=== PATIENT | female | born 1990 | race Caucasian/White ===

== ENCOUNTER 2019-03-02 06:00 | Day surgery (SDC) | payer BC ==
[~2019-03-02] VITALS: Ht 175.3 cm; Wt 102.1 kg
[~2019-03-02 06:00] MED LIST: CEFAZOLIN 1 GM IVPB PREMIX 50 ML IV ONE
[2019-03-02] MEDS ORDERED: MIDAZOLAM HCL 5 MG/5 ML VIAL IVP ONE (06:50)
[2019-03-02] MEDS ORDERED: LR 1,000 ML IV.SOLN IV ONE (06:50)
[2019-03-02] MEDS ORDERED: NS IRRIG SOLN 1000 ML IR ONE (06:50)
[2019-03-02] MEDS ORDERED: CEFAZOLIN SOD 1 GM in D5W 50 ML IV ONE (07:15)
[2019-03-02] MEDS ORDERED: TERBUTALINE SULFATE 1 MG/ML VIAL SUBCUT ONE (07:45)
[2019-03-02] MEDS ORDERED: MORPHINE 4 MG/ML INJ. SYRINGE IVP ONE (07:45)
[2019-03-02 08:06] VITALS: BP_SYST 109
== END 2019-03-02 18:00 | disposition home or self-care (01) ==
LOC: SMU 06:00 → SDS 06:00 → SPU 09:04 → SDS 18:00
PROVIDERS: ATTEND Specialist
DX: O34.32 Maternal care for cervical incompetence, second trimester (principal); Z88.5 Allergy status to narcotic agent; Z3A.14 14 weeks gestation of pregnancy
CPT/HCPCS: 59320; 87070 ×2; J2250; J3105; J7120; J0690; J7060

== ENCOUNTER 2019-03-25 12:06 | Emergency (ER) | payer BC ==
[~2019-03-25] VITALS: Ht 175.3 cm; Wt 99.8 kg
[2019-03-25 12:06] VITALS: BP_SYST 121
[2019-03-25 13:53] LABS: BASOPHILS # (AUTO) 0.1 K/uL (0.0-0.2); BASOPHILS % (AUTO) 0.7 % (0.0-2.0); EOSINOPHILS # (AUTO) 0.1 K/uL (0.0-0.4); HEMATOCRIT 36.6 % (36-48); HEMOGLOBIN 12.4 g/dL (12.0-16.0); LYMPHOCYTES # (AUTO) 2.1 K/uL (1.0-5.5); MEAN CORPUSCULAR HEMOGLOBIN 30 pg (27-31); MEAN CORPUSCULAR HGB CONC 34 % (32-36); MEAN CORPUSCULAR VOLUME 89 fL (79.0-98.0); MONOCYTES # (AUTO) 0.5 K/uL (0.0-1.0); MONOCYTES % (AUTO) 5.1 % (1.7-9.3); NEUTROPHILS # (AUTO) 6.8 K/uL (1.8-7.7); NEUTROPHILS % (AUTO) 71.2 % (40.0-70.0); PLATELET COUNT (AUTO) 267 K/uL (130-430); RED BLOOD CELL COUNT(AUTO) 4.14 MIL/uL (4.2-6.2); RED CELL DISTRIBUTION WIDTH 13.7 % (9.0-15.0); WHITE BLOOD COUNT (AUTO) 9.6 K/uL (4.8-10.8)
[2019-03-25 14:02] LABS: BILIRUBIN,URINE NEGATIVE (NEGATIVE); BLOOD, URINE NEGATIVE (NEGATIVE); COLOR,URINE YELLOW (YELLOW); GLUCOSE,URINE NEGATIVE (NEGATIVE); KETONES,URINE TRACE (NEGATIVE); LEUKOCYTE ESTERASE ,URINE 1+ (NEGATIVE); NITRITE, URINE NEGATIVE (NEGATIVE); PROTEIN URINE NEGATIVE (NEGATIVE)
[2019-03-25 14:06] LABS: CALCIUM 8.6 mg/dL (8.4-11.0); CREATININE 0.66 mg/dL (0.55-1.30); POTASSIUM 3.6 mmol/L (3.5-5.1)
[2019-03-25 14:12] LABS: ALBUMIN 2.7 g/dL (3.4-4.8); TOTAL BILIRUBIN 0.2 mg/dL (0.0-1.0)
[2019-03-25 14:13] LABS: CLARITY/URINE HAZY (CLEAR)
[2019-03-25 14:14] LABS: RBC,URINE NONE SEEN /HPF (0-3)
[2019-03-25 14:15] LABS: BACTERIA,URINE MODERATE /HPF (None Seen); MUCUS,URINE None Seen /LPF (None Seen)
[2019-03-25 15:14] VITALS: BP_SYST 114
== END 2019-03-25 15:14 | disposition home or self-care (01) ==
LOC: SED 12:06
DX: O26.892 Other specified pregnancy related conditions, second trimester (principal); R06.00 Dyspnea, unspecified; Z3A.17 17 weeks gestation of pregnancy
CPT/HCPCS: 36415; 80053; 81000-TC; 85025; 87086; 99283

== ENCOUNTER 2019-05-29 16:43 | Observation (INO) | payer BC ==
[~2019-05-29] VITALS: Ht 175.3 cm; Wt 104.3 kg
== END 2019-05-29 17:55 | disposition home or self-care (01) ==
LOC: SPU 16:43
PROVIDERS: ADMIT Specialist; ATTEND Specialist
DX: O42.912 Preterm premature rupture of membranes, unspecified as to length of time between rupture and onset of labor, second trimester (principal); Z3A.26 26 weeks gestation of pregnancy
CPT/HCPCS: 76815; 81002; 87070; G0378

== ENCOUNTER 2019-08-04 20:20 | Observation (INO) | payer BC ==
[~2019-08-04] VITALS: Ht 175.3 cm; Wt 108.9 kg
[2019-08-04] MEDS ORDERED: TERBUTALINE SULFATE 1 MG/ML VIAL SUBCUT ONE ×3 (21:30→23:14)
== END 2019-08-04 23:15 | disposition home or self-care (01) ==
LOC: SPU 20:20
PROVIDERS: ADMIT Specialist; ATTEND Specialist
DX: O26.893 Other specified pregnancy related conditions, third trimester (principal); R10.2 Pelvic and perineal pain; Z3A.35 35 weeks gestation of pregnancy
CPT/HCPCS: 81002; 96372; G0378; J3105

== ENCOUNTER 2019-08-11 18:27 | Observation (INO) | payer BC ==
[~2019-08-11] VITALS: Ht 175.3 cm; Wt 108.9 kg
[~2019-08-11 18:27] MED LIST changes: -CEFAZOLIN 1 GM IVPB PREMIX 50 ML IV ONE; +TERBUTALINE SULFATE 1 MG/ML VIAL ONE
[2019-08-11] MEDS ORDERED: TERBUTALINE SULFATE 1 MG/ML VIAL IVP ONE (19:00)
== END 2019-08-11 19:16 | disposition home or self-care (01) ==
LOC: SPU 18:27
PROVIDERS: ADMIT Specialist; ATTEND Specialist
DX: O62.9 Abnormality of forces of labor, unspecified (principal); Z3A.37 37 weeks gestation of pregnancy
CPT/HCPCS: 81002; 96374; G0378; J3105

== ENCOUNTER 2019-08-27 00:30 | Inpatient (IN) | payer BC, SELFPAY ==
[~2019-08-27] VITALS: Ht 175.3 cm; Wt 113.4 kg
[2019-08-27] MEDS ORDERED: OXYTOCIN/0.9 % SODIUM CHLORIDE 1,000 ML IV SCH ×2 (00:50→07:32)
[2019-08-27] MEDS ORDERED: TERBUTALINE SULFATE 1 MG/ML VIAL SUBCUT ONE (01:00)
[2019-08-27] MEDS ORDERED: MORPHINE SULFATE 10 MG/ML VIAL IVP PRN (01:00)
[2019-08-27 01:42] LABS: BASOPHILS # (AUTO) 0.1 K/uL (0.0-0.2); BASOPHILS % (AUTO) 0.8 % (0.0-2.0); EOSINOPHILS # (AUTO) 0.1 K/uL (0.0-0.4); EOSINOPHILS % (AUTO) 0.6 % (0.0-4.0); HEMATOCRIT 33.2 % (36-48); HEMOGLOBIN 10.9 g/dL (12.0-16.0); LYMPHOCYTES # (AUTO) 2.9 K/uL (1.0-5.5); LYMPHOCYTES % (AUTO) 28.3 % (20.5-51.5); MEAN CORPUSCULAR HEMOGLOBIN 28 pg (27-31); MEAN CORPUSCULAR HGB CONC 33 % (32-36); MEAN CORPUSCULAR VOLUME 85 fL (79.0-98.0); MONOCYTES # (AUTO) 0.8 K/uL (0.0-1.0); MONOCYTES % (AUTO) 8.1 % (1.7-9.3); NEUTROPHILS # (AUTO) 6.4 K/uL (1.8-7.7); NEUTROPHILS % (AUTO) 62.2 % (40.0-70.0); PLATELET COUNT (AUTO) 275 K/uL (130-430); RED BLOOD CELL COUNT(AUTO) 3.93 MIL/uL (4.2-6.2); RED CELL DISTRIBUTION WIDTH 14.6 % (9.0-15.0); WHITE BLOOD COUNT (AUTO) 10.2 K/uL (4.8-10.8)
[2019-08-27] MEDS: LR 1,000 ML IV SCH ×2 (02:01→06:00)
[2019-08-27 02:03] VITALS: BP_SYST 139
[2019-08-27] MEDS ORDERED: OXYTOCIN/0.9 % SODIUM CHLORIDE 1,000 ML IV ONE (07:32)
[2019-08-27] MEDS ORDERED: DIPH-TET-PERTUS Vaccine 0.5 ML VIAL (ADACEL) I.M. PRN (07:45)
[2019-08-27] MEDS ORDERED: METHYLERGONOVINE MALEATE 0.2 MG TABLET PO PRN (07:45)
[2019-08-27] MEDS ORDERED: MEASLES,MUMPS&RUBELLA VACC/PF 12500 UNIT/0.5 ML VIAL SUBQ PRN (07:45)
[2019-08-27] MEDS ORDERED: ANUSOL 1 EA SUPP.RECT (PREPARATION H) RC PRN (07:45)
[2019-08-27] MEDS ORDERED: HYDROcodone/ACETAMIN 5-325 MG TAB (NORCO/ VICODIN) PO PRN (07:45)
[2019-08-27] MEDS ORDERED: OXYCODONE/ACETAMINOPHEN 5-325 TABLET PO PRN ×2 (07:45)
[2019-08-27] MEDS ORDERED: LANOLIN 7 GM OINT. TP PRN (07:45)
[2019-08-27] MEDS ORDERED: SENNOSIDES/DOCUSATE SODIUM 1 TAB TABLET(SENOKOT-S) PO PRN (07:45)
[2019-08-27] MEDS ORDERED: RHO(D) IMMUNE GLOBULIN/MALTOSE 1500 UNITS/1.3 ML (WINHRO) IM PRN (07:45)
[2019-08-27] MEDS ORDERED: WITCH HAZEL LEAF 1 MED.PAD MED.PAD TP PRN (07:45)
[2019-08-27] MEDS ORDERED: HYDROCORTISONE 0.5%, 28.35 GM TOPICAL CREAM TP PRN (07:45)
[2019-08-27] MEDS ORDERED: DERMOPLAST SPRAY TP PRN (07:45)
[2019-08-27] MEDS: IBUPROFEN 600 MG TABLET PO SCH ×3 (11:58→23:51)
[2019-08-27] MEDS ORDERED: LIDOCAINE PF 1% 30ML(POUR BTL) INJ ONE (13:00)
[2019-08-27] MEDS ORDERED: TEMAZEPAM 15 MG CAPSULE PO PRN (21:00)
[2019-08-27] MEDS: DOCUSATE SODIUM 100 MG CAPSULE PO PRN (23:52)
[2019-08-28] MEDS: IBUPROFEN 600 MG TABLET PO SCH (05:52)
[2019-08-28] MEDS: DOCUSATE SODIUM 100 MG CAPSULE PO PRN (05:52)
[2019-08-28 06:34] LABS: BASOPHILS # (AUTO) 0.1 K/uL (0.0-0.2); BASOPHILS % (AUTO) 0.5 % (0.0-2.0); EOSINOPHILS # (AUTO) 0.1 K/uL (0.0-0.4); EOSINOPHILS % (AUTO) 1.2 % (0.0-4.0); HEMATOCRIT 30.3 % (36-48); HEMOGLOBIN 9.9 g/dL (12.0-16.0); LYMPHOCYTES # (AUTO) 2.9 K/uL (1.0-5.5); LYMPHOCYTES % (AUTO) 27.1 % (20.5-51.5); MEAN CORPUSCULAR HEMOGLOBIN 27 pg (27-31); MEAN CORPUSCULAR HGB CONC 33 % (32-36); MEAN CORPUSCULAR VOLUME 84 fL (79.0-98.0); MONOCYTES # (AUTO) 0.7 K/uL (0.0-1.0); MONOCYTES % (AUTO) 6.6 % (1.7-9.3); NEUTROPHILS % (AUTO) 64.6 % (40.0-70.0); PLATELET COUNT (AUTO) 234 K/uL (130-430); RED BLOOD CELL COUNT(AUTO) 3.63 MIL/uL (4.2-6.2); RED CELL DISTRIBUTION WIDTH 14.9 % (9.0-15.0); WHITE BLOOD COUNT (AUTO) 10.8 K/uL (4.8-10.8)
== END 2019-08-28 09:40 | disposition home or self-care (01) | DRG 807 ==
LOC: SPU 00:30
PROVIDERS: ADMIT Specialist; ATTEND Specialist
PROC: 10E0XZZ Delivery of Products of Conception, External Approach (ICD-10-PCS; principal; 2019-08-27)
PROC: 0KQM0ZZ Repair Perineum Muscle, Open Approach (ICD-10-PCS; 2019-08-27)
DX: O69.81X0 Labor and delivery complicated by cord around neck, without compression, not applicable or unspecified (principal); Z37.0 Single live birth; O70.1 Second degree perineal laceration during delivery; Z3A.39 39 weeks gestation of pregnancy; Z03.818 Encounter for observation for suspected exposure to other biological agents ruled out
CPT/HCPCS: 36415; 81002-TC; 85025; 86592; 86886; 86900; 86901; J2001; J2270; J2590; J7120; U0003-CS